=== PATIENT | female | born 1995 | race Two or more races ===

== ENCOUNTER 2022-03-10 01:01 | Inpatient (IN) | payer OTHER ==
[~2022-03-10] VITALS: Ht 147.3 cm; Wt 59.0 kg
[2022-03-10] MEDS ORDERED: FOLIC ACID20 MG PO (01:06)
[2022-03-10] MEDS ORDERED: PRENATAL TABLE1 EAC1 PO (01:06)
== END 2022-03-12 11:55 | disposition home or self-care (01) | DRG 807 ==
LOC: LDR 01:01 → OB/GYN 12:13
PROVIDERS: ADMIT Obstetrics & Gynecology; ATTEND Obstetrics & Gynecology
PROC: 10E0XZZ Delivery of Products of Conception, External Approach (ICD-10-PCS; principal; 2022-03-10)
PROC: 0UQG7ZZ Repair Vagina, Via Natural or Artificial Opening (ICD-10-PCS; 2022-03-10)
PROC: 4A1HXCZ Monitoring of Products of Conception, Cardiac Rate, External Approach (ICD-10-PCS; 2022-03-10)
DX: O71.4 Obstetric high vaginal laceration alone (principal); Z37.0 Single live birth; Z3A.39 39 weeks gestation of pregnancy; Z20.822 Contact with and (suspected) exposure to COVID-19